=== PATIENT | female | born 1960 | race Caucasian/White ===

== ENCOUNTER 2017-03-31 20:22 | Emergency (ER) | payer OTHER ==
[2017-03-31 20:33] VITALS: BP 177/81
[2017-03-31] MEDS ORDERED: Ondansetron 4 MG/2 ML SDV IVPUSH ONE (20:42)
[2017-03-31] MEDS ORDERED: Sodium Chloride 0.9% 10 ML Syringe FLUSH PRN (20:42)
[2017-03-31] MEDS ORDERED: HYDROmorphone 1 MG/ML Syringe IVPUSH ONE (20:44)
[2017-03-31] MEDS ORDERED: Ketorolac 30 MG/ML SDV IVPUSH ONE (20:44)
[2017-03-31] MEDS ORDERED: Sodium Chloride 0.9% 1,000 ML IV SCH (20:45)
--- NOTE | 2017-03-31 20:49 | EDM.PDOC ---
ED HPI GENERAL MEDICAL PROBLEM - General Chief Complaint: Back Pain or Injury Stated Complaint: LEFT FLANK PAIN Time Seen by Provider: 03/31/17 20:31 Source of Information: Reports: Patient History Limitations: Reports: No Limitations - History of Present Illness INITIAL COMMENTS - FREE TEXT/NARRATIVE: The patient presents with left flank and left lower back pain. This started yesterday and the pain comes and goes. She has a history of kidney stones. She has some nausea but no vomiting. She has no fever, chills, cough, chest pain or shortness of breath. She has no dysuria or hematuria that she noticed. She feels she is urinating less. Onset: Sudden Duration: Day(s): (Yesterday) Location: Reports: Back (Left flank and lower back) Quality: Reports: Sharp Severity: Severe Improves with: Reports: None Worsens with: Reports: None Associated Symptoms: Reports: Nausea/Vomiting. Denies: Chest Pain, Cough, Fever /Chills, Headaches, Shortness of Breath Left Lower Back Pain Score (Numeric/FACES): 7 - Related Data Allergies Allergy/AdvReac Type Severity Reaction Status Date / Time No Known Allergies Allergy Verified 03/14/16 19:54 Home Meds: Home Meds Losartan [Cozaar] 25 mg PO DAILY 02/21/14 [History] Nortriptyline 25 mg PO BEDTIME 02/21/14 [History] Omeprazole [Prilosec] 20 mg PO DAILY 02/21/14 [History] Losartan [Cozaar] 50 mg PO DAILY #30 tablet 03/14/16 [Rx] Meclizine [Antivert] 12.5 mg PO Q6H PRN #20 tablet 03/14/16 [Rx] Metoprolol Tartrate 50 mg PO BID 03/14/16 [History] Multivitamin [Multi-Vitamin Daily] 1 each PO DAILY 03/14/16 [History] Triamcinolone Acetonide [Nasacort] 10.8 ml NS DAILY 03/14/16 [History] Past Medical History HEENT History: Reports: Cataract Cardiovascular History: Reports: High Cholesterol, Hypertension Gastrointestinal History: Reports: None Genitourinary History: Reports: Renal Calculus 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: Musculoskeletal History: Reports: Other (See Below) Other Musculoskeletal History: Shermans disease Neurological History: Reports: Migraines Psychiatric History: Reports: Anxiety Endocrine/Metabolic History: Reports: Other (See Below) Other Endocrine/Metabolic History: Borderline diabetic Hematologic History: Reports: Anemia - Past Surgical History HEENT Surgical History: Reports: Eye Surgery GI Surgical History: Reports: Cholecystectomy Female Surgical History: Reports: Section, Hysterectomy Social & Family History - Family History Family Medical History: Noncontributory - Tobacco Use Smoking Status *Q: Never Smoker Second Hand Smoke Exposure: No - Caffeine Use Caffeine Use: Reports: Soda - Recreational Drug Use Recreational Drug Use: No ED ROS GENERAL - Review of Systems Review Of Systems: See Below Constitutional: Reports: No Symptoms HEENT: Reports: No Symptoms Respiratory: Reports: No Symptoms Cardiovascular: Reports: No Symptoms Endocrine: Reports: No Symptoms GI/Abdominal: Reports: No Symptoms : Reports: Flank Pain (Left) Musculoskeletal: Reports: Back Pain (Left flank and left low back) Skin: Reports: No Symptoms ED EXAM,LOWER BACK PAIN/INJURY - Physical Exam Exam: See Below Exam Limited By: No Limitations General Appearance: Alert, No Apparent Distress Ears: Normal External Exam Nose: Normal Inspection Head: Atraumatic, Normocephalic Neck: Normal Inspection Respiratory/Chest: No Respiratory Distress, Lungs Clear, Normal Breath Sounds Cardiovascular: Regular Rate, Rhythm, No Edema, No Murmur GI/Abdominal: Soft, Non-Tender, No Organomegaly, No Mass Back Exam: CVA Tenderness (L) Extremities: Normal Inspection Neurological: Alert, No Motor/Sensory Deficits, Oriented x 3 Course - Vital Signs Last Recorded V/S: Last Vital Signs Temp 98.7 F 03/31/17 20:29 Pulse 90 03/31/17 20:29 Resp 18 03/31/17 20:29 BP 177/81 H 03/31/17 20:29 Pulse Ox 98 03/31/17 20:29 - Orders/Labs/Meds Orders: Active Orders 24 hr Category Date Time Status Peripheral IV Care [RC] . DIRECTED Care 03/31/17 20:43 Active Abdomen Pelvis wo Cont [CT] Stat Exams 03/31/17 20:42 Taken Sodium Chloride 0.9% [Normal Saline] 1,000 ml Med 03/31/17 20:45 Active IV ASDIRECTED Sodium Chloride 0.9% [Saline Flush] Med 03/31/17 20:42 Active 10 ml FLUSH ASDIRECTED PRN ED Antiemetic Medication Reflex [OM.PC] Stat Oth 03/31/17 20:43 Ordered Peripheral IV Insertion Adult [OM.PC] Stat Oth 03/31/17 20:42 Ordered Medication Orders Sodium Chloride (Normal Saline) 1,000 mls @ 125 mls/hr IV ASDIRECTED JESUS Last Admin: 03/31/17 21:00 Dose: 125 mls/hr Sodium Chloride (Saline Flush) 10 ml FLUSH ASDIRECTED PRN PRN Reason: Keep Vein Open Last Admin: 03/31/17 21:03 Dose: 10 ml Labs: Laboratory Tests 03/31/17 03/31/17 03/31/17 Range/Units 20:25 21:00 21:00 WBC 8.34 (3.98-10.04) K/mm3 RBC 3.92 L (3.98-5.22) M/mm3 Hgb 12.1 (11.2-15.7) gm/L Hct 37.6 (34.1-44.9) % MCV 95.9 H (79.4-94.8) fl MCH 30.9 (25.6-32.2) pg MCHC 32.2 (32.2-35.5) g/dl RDW Std Deviation 46.3 (36.4-46.3) fL Plt Count 325 (182-369) K/mm3 MPV 10.1 (9.4-12.3) fl Neut % (Auto) 66.6 (34.0-71.1) % Lymph % (Auto) 21.9 (19.3-51.7) % [place] % (Auto) 7.2 (4.7-12.5) % Eos % (Auto) 3.7 (0.7-5.8) Baso % (Auto) 0.4 (0.1-1.2) % Neut # (Auto) 5.55 (1.56-6.13) K/mm3 Lymph # (Auto) 1.83 (1.18-3.74) K/mm3 [place] # (Auto) 0.60 H (0.24-0.36) K/mm3 Eos # (Auto) 0.31 (0.04-0.36) K/mm3 Baso # (Auto) 0.03 (0.01-0.08) K/mm3 Sodium 142 (136-145) mEq/L Potassium 3.8 (3.5-5.1) mEq/L Chloride 103 (98-107) mEq/L Carbon Dioxide 27 (21-32) mEq/L Anion Gap 15.8 H (5-15) BUN 13 (7-18) mg/dL Creatinine 1.0 (0.55-1.02) mg/dL Est Cr Clr Drug Dosing 57.87 mL/min Estimated GFR (MDRD) 58 (>60) mL/min BUN/Creatinine Ratio 13.0 L (14-18) Glucose 167 H (74-106) mg/dL Calcium 9.0 (8.5-10.1) mg/dL Total Bilirubin 0.4 (0.2-1.0) mg/dL AST 18 (15-37) U/L ALT 39 (14-59) U/L Alkaline Phosphatase 109 (46-116) U/L Total Protein 7.9 (6.4-8.2) g/dl Albumin 4.0 (3.4-5.0) g/dl Globulin 3.9 gm/dL Albumin/Globulin Ratio 1.0 (1-2) Lipase 96 (73-393) U/L Urine Color Light yellow (Yellow) Urine Appearance Clear (Clear) Urine pH 6.0 (5.0-8.0) Ur Specific [place] 1.010 (1.005-1.030) Urine Protein Negative (Negative) Urine Glucose (UA) Negative (Negative) Urine Ketones Negative (Negative) Urine Occult Blood 2+ H (Negative) Urine Nitrite Negative (Negative) Urine Bilirubin Negative (Negative) Urine Urobilinogen 0.2 (0.2-1.0) Ur Leukocyte Esterase Negative (Negative) Urine RBC 5-10 H (0-5) /hpf Urine WBC Not seen (0-5) /hpf Ur Epithelial Cells 0-5 (0-5) /hpf Urine Bacteria Rare (FEW) /hpf Urine Mucus Not seen (FEW) /hpf Meds: Medications Generic Name Dose Route Start Last Admin Trade Name Freq PRN Reason Stop Dose Admin Sodium Chloride 1,000 mls @ 125 mls/hr 03/31/17 20:45 03/31/17 21:00 Normal Saline IV 125 mls/hr ASDIRECTED JESUS Administration Sodium Chloride 10 ml 03/31/17 20:42 03/31/17 21:03 Saline Flush FLUSH 10 ml ASDIRECTED PRN Administration Keep Vein Open Discontinued Medications Generic Name Dose Route Start Last Admin Trade Name [place]mond PRN Reason Stop Dose Admin Hydromorphone HCl 1 mg 03/31/17 20:44 03/31/17 21:03 Dilaudid IVPUSH 03/31/17 20:45 1 mg ONETIME ONE Administration Ketorolac Tromethamine 30 mg 03/31/17 20:44 03/31/17 21:02 Toradol IVPUSH 03/31/17 20:45 30 mg ONETIME ONE Administration Ondansetron HCl 4 mg 03/31/17 20:42 03/31/17 21:01 Zofran IVPUSH 03/31/17 20:43 4 mg ONETIME ONE Administration - Re-Assessments/Exams Free Text/Narrative Re-Assessment/Exam: 03/31/17 20:52 I ordered an IV NS 125mL/hr, zofran 4mg IV, toradol 30mg IV and dilaudid 1mg IV. I will get labs, UA and a CT of her abdomen and pelvis. 03/31/17 22:27 Her CBC was negative. Her CMP was negative. Her lipase was negative. Her UA shows some blood. Her CT shows a 5mm stone in the proximal left ureter which results in mild left-sided hydronephrosis. She feels better but the pain is not gone. I will give her another dose of dilaudid and discharge her home with some Departure - Departure Time of Disposition: 10:35 Disposition: Home, Self-Care 01 Condition: Good Clinical Impression: Kidney stone, Ureteral colic, Ureteral calculus, left - Discharge Information Referrals: Eugene Baum MD [Primary Care Provider] - Florentino France MD [Physician] - 1 Week Forms: ED Department Discharge Additional Instructions: Drink plenty of water. Take the flomax daily. Take the percocet 1 to 2 pills every 6 hours as needed for pain. Follow up with Dr France. Please return if you are worse. - My Orders Last 24 Hours: My Active Orders 03/31/17 20:42 Abdomen Pelvis wo Cont [CT] Stat Sodium Chloride 0.9% [Saline Flush] 10 ml FLUSH ASDIRECTED PRN Peripheral IV Insertion Adult [OM.PC] Stat 03/31/17 20:43 Peripheral IV Care [RC] . DIRECTED ED Antiemetic Medication Reflex [OM.PC] Stat 03/31/17 20:45 Sodium Chloride 0.9% [Normal Saline] 1,000 ml IV ASDIRECTED - Assessment/Plan Last 24 Hours: My Active Orders 03/31/17 20:42 Abdomen Pelvis wo Cont [CT] Stat Sodium Chloride 0.9% [Saline Flush] 10 ml FLUSH ASDIRECTED PRN Peripheral IV Insertion Adult [OM.PC] Stat 03/31/17 20:43 Peripheral IV Care [RC] . DIRECTED ED Antiemetic Medication Reflex [OM.PC] Stat 03/31/17 20:45 Sodium Chloride 0.9% [Normal Saline] 1,000 ml IV ASDIRECTED
[2017-03-31] MEDS ORDERED: HYDROmorphone 0.5 MG/0.5 ML Syringe IVPUSH ONE (22:27)
[2017-03-31] MEDS ORDERED: Tamsulosin 0.4 MG Cap.ER PO ONE (22:30)
--- NOTE | 2017-04-01 07:40 | CT ---
CT abdomen and pelvis Technique: Multiple axial sections were obtained from above the dome of the diaphragm inferiorly through the pubic symphysis. Intravenous and oral contrast not utilized. Study has been performed as a ureteral stone protocol. Comparison: Previous CT abdomen and pelvis exam of 04/10/12. Findings: Multiple small nonobstructing calculi are noted within both kidneys. Left collecting system is mildly prominent. Proximal left ureter is mildly prominent. These findings are caused by proximal left ureteral stone measuring approximately 6.0 mm in size. No other abnormal calcifications are seen along the course of the ureters. Visualized lung bases show nothing acute. Liver shows no focal abnormality. Spleen appears normal in size. Adrenal glands show no nodule. Surgical clips are seen from prior cholecystectomy. Pancreas is within normal limits. Aorta shows diffuse atherosclerotic change which continues into the iliac vessels. Haziness is noted within the mesenteric fat which is is felt to be incidental. Appendix is seen which appears normal. No pelvic mass or adenopathy is seen. No free fluid is identified. Bone window settings were reviewed which show scattered degenerative change most prominent within the lower thoracic spine. Impression: 1. Multiple small nonobstructing renal calculi. Most of these are seen on prior study. 2. Obstructing proximal left ureteral stone measuring about 6.0 mm. 3. Other incidental findings as noted above. Diagnostic code #3 Agree with preliminary report issued by [facility] ([facility] preliminary report dictated on 03/31/17, 10:37 PM Central Time)
== END 2017-03-31 22:55 | disposition home or self-care (01) ==
LOC: JD.ED 20:22
DX: N13.2 Hydronephrosis with renal and ureteral calculous obstruction (principal); E78.00 Pure hypercholesterolemia, unspecified; I10 Essential (primary) hypertension; F41.9 Anxiety disorder, unspecified; Z90.710 Acquired absence of both cervix and uterus; Z79.899 Other long term (current) drug therapy; Z87.442 Personal history of urinary calculi; Z90.49 Acquired absence of other specified parts of digestive tract
CPT/HCPCS: 36415; 74176; 80053; 81001; 83690; 85025; 96361; 96374; 96375; 96376; 99284; A9270; J1170; J1885; J2405; J7040; J7050

== ENCOUNTER 2017-04-03 10:01 | Emergency (ER) | payer OTHER ==
[2017-04-03] MEDS ORDERED: Ondansetron 4 MG/2 ML SDV IVPUSH ONE (10:24)
[2017-04-03] MEDS ORDERED: Sodium Chloride 0.9% 10 ML Syringe FLUSH PRN (10:24)
[2017-04-03] MEDS ORDERED: HYDROmorphone 1 MG/ML Syringe IVPUSH ONE (10:25)
[2017-04-03] MEDS ORDERED: Ketorolac 30 MG/ML SDV IVPUSH ONE (10:25)
[2017-04-03] MEDS ORDERED: Sodium Chloride 0.9% 1,000 ML IV SCH (10:30)
--- NOTE | 2017-04-03 10:31 | EDM.PDOC ---
ED HPI GENERAL MEDICAL PROBLEM - General Chief Complaint: Flank Pain Stated Complaint: LEFT FLANK PAIN Time Seen by Provider: 04/03/17 10:12 Source of Information: Reports: Patient History Limitations: Reports: No Limitations - History of Present Illness INITIAL COMMENTS - FREE TEXT/NARRATIVE: The patient presents with left flank pain. She was seen here Friday night and she had a 5mm left ureteral stone that was mid ureter. She was given flomax and percocet. She has had some pain on and off since then. This morning the pain got very bad. She had some nausea with it. She denies fever, chills, cough, chest pain, or shortness of breath. She did not get a change to follow up with Dr France. Onset: Gradual Duration: Day(s): (Since Friday) Location: Reports: Back (left flank to the left abdomen) Quality: Reports: Sharp Severity: Severe Improves with: Reports: None Worsens with: Reports: None Associated Symptoms: Reports: Nausea/Vomiting. 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) Other Treatments BREAKER MACHINE OPERATOR: Percocet 1 tab @ 0900 Left Flank Pain Score (Numeric/FACES): 8 - Related Data Allergies Allergy/AdvReac Type Severity Reaction Status Date / Time No Known Allergies Allergy Verified 04/03/17 10:11 Home Meds: Home Meds Losartan [Cozaar] 25 mg PO DAILY 02/21/14 [History] Nortriptyline 25 mg PO BEDTIME 02/21/14 [History] Omeprazole [Prilosec] 20 mg PO DAILY 02/21/14 [History] Losartan [Cozaar] 50 mg PO DAILY #30 tablet 03/14/16 [Rx] Meclizine [Antivert] 12.5 mg PO Q6H PRN #20 tablet 03/14/16 [Rx] Metoprolol Tartrate 50 mg PO BID 03/14/16 [History] Multivitamin [Multi-Vitamin Daily] 1 each PO DAILY 03/14/16 [History] Triamcinolone Acetonide [Nasacort] 10.8 ml NS DAILY 03/14/16 [History] oxyCODONE HCl/Acetaminophen [Percocet 5-325 mg Tablet] 1 - 2 each PO Q6HR PRN # 20 tablet 04/03/17 [Rx] Past Medical History HEENT History: Reports: Cataract Cardiovascular History: Reports: High Cholesterol, Hypertension Gastrointestinal History: Reports: None Genitourinary History: Reports: Renal Calculus 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: Musculoskeletal History: Reports: Other (See Below) Other Musculoskeletal History: Shermans disease Neurological History: Reports: Migraines Psychiatric History: Reports: Anxiety Endocrine/Metabolic History: Reports: Other (See Below) Other Endocrine/Metabolic History: Borderline diabetic Hematologic History: Reports: Anemia - Past Surgical History HEENT Surgical History: Reports: Eye Surgery GI Surgical History: Reports: Cholecystectomy Female Surgical History: Reports: Section, Hysterectomy Social & Family History - Family History Family Medical History: Noncontributory - Tobacco Use Smoking Status *Q: Never Smoker Second Hand Smoke Exposure: No - Caffeine Use Caffeine Use: Reports: Soda - Recreational Drug Use Recreational Drug Use: No ED ROS GENERAL - Review of Systems Review Of Systems: See Below Constitutional: Reports: No Symptoms HEENT: Reports: No Symptoms Respiratory: Reports: No Symptoms Cardiovascular: Reports: No Symptoms Endocrine: Reports: No Symptoms GI/Abdominal: Reports: Abdominal Pain, Nausea. Denies: Vomiting : Reports: Flank Pain (Left) Musculoskeletal: Reports: Back Pain (Left) ED EXAM, RENAL/ - Physical Exam Exam: See Below Exam Limited By: No Limitations General Appearance: Alert, Mild Distress Ears: Normal External Exam Nose: Normal Inspection Head: Atraumatic, Normocephalic Neck: Normal Inspection Respiratory/Chest: No Respiratory Distress, Lungs Clear, Normal Breath Sounds Cardiovascular: Regular Rate, Rhythm, No Edema, No Murmur GI/Abdominal: Soft, No Organomegaly, No Mass, Tender (Mild to the left abdomen) Back Exam: CVA Tenderness (L) (Mild) Course - Vital Signs Last Recorded V/S: Last Vital Signs Temp 99.0 F 04/03/17 10:08 Pulse 86 04/03/17 10:08 Resp 18 04/03/17 10:08 BP 143/88 H 04/03/17 10:08 Pulse Ox 97 04/03/17 10:08 - Orders/Labs/Meds Orders: Active Orders 24 hr Category Date Time Status Peripheral IV Care [RC] . DIRECTED Care 04/03/17 10:24 Active Sodium Chloride 0.9% [Normal Saline] 1,000 ml Med 04/03/17 10:30 Active IV ASDIRECTED Sodium Chloride 0.9% [Saline Flush] Med 04/03/17 10:24 Active 10 ml FLUSH ASDIRECTED PRN ED Antiemetic Medication Reflex [OM.PC] Stat Ot 04/03/17 10:24 Ordered Peripheral IV Insertion Adult [OM.PC] Stat Ot 04/03/17 10:24 Ordered Medication Orders Sodium Chloride (Normal Saline) 1,000 mls @ 125 mls/hr IV ASDIRECTED JESUS Last Admin: 04/03/17 10:54 Dose: 125 mls/hr Sodium Chloride (Saline Flush) 10 ml FLUSH ASDIRECTED PRN PRN Reason: Keep Vein Open Last Admin: 04/03/17 10:58 Dose: 10 ml Labs: Laboratory Tests 04/03/17 04/03/17 04/03/17 Range/Units 10:45 10:45 10:45 WBC 12.58 H (3.98-10.04) K/mm3 RBC 3.59 L (3.98-5.22) M/mm3 Hgb 11.1 L (11.2-15.7) gm/L Hct 34.8 (34.1-44.9) % MCV 96.9 H (79.4-94.8) fl MCH 30.9 (25.6-32.2) pg MCHC 31.9 L (32.2-35.5) g/dl RDW Std Deviation 46.8 H (36.4-46.3) fL Plt Count 292 (182-369) K/mm3 MPV 10.5 (9.4-12.3) fl Neut % (Auto) 79.2 H (34.0-71.1) % Lymph % (Auto) 8.8 L (19.3-51.7) % [place] % (Auto) 8.2 (4.7-12.5) % Eos % (Auto) 3.3 (0.7-5.8) Baso % (Auto) 0.3 (0.1-1.2) % Neut # (Auto) 9.95 H (1.56-6.13) K/mm3 Lymph # (Auto) 1.11 L (1.18-3.74) K/mm3 [place] # (Auto) 1.03 H (0.24-0.36) K/mm3 Eos # (Auto) 0.42 H (0.04-0.36) K/mm3 Baso # (Auto) 0.04 (0.01-0.08) K/mm3 Manual Slide Review Abnormal smear Sodium 137 (136-145) mEq/L Potassium 4.3 (3.5-5.1) mEq/L Chloride 100 (98-107) mEq/L Carbon Dioxide 30 (21-32) mEq/L Anion Gap 11.3 (5-15) BUN 12 (7-18) mg/dL Creatinine 1.2 H (0.55-1.02) mg/dL Est Cr Clr Drug Dosing TNP Estimated GFR (MDRD) 47 (>60) mL/min BUN/Creatinine Ratio 10.0 L (14-18) Glucose 132 H (74-106) mg/dL Calcium 9.7 (8.5-10.1) mg/dL Total Bilirubin 0.4 (0.2-1.0) mg/dL AST 28 (15-37) U/L ALT 57 (14-59) U/L Alkaline Phosphatase 109 (46-116) U/L Total Protein 8.2 (6.4-8.2) g/dl Albumin 3.7 (3.4-5.0) g/dl Globulin 4.5 gm/dL Albumin/Globulin Ratio 0.8 L (1-2) Lipase 76 (73-393) U/L Urine Color Light yellow (Yellow) Urine Appearance Clear (Clear) Urine pH 6.5 (5.0-8.0) Ur Specific [place] 1.010 (1.005-1.030) Urine Protein Negative (Negative) Urine Glucose (UA) Negative (Negative) Urine Ketones Negative (Negative) Urine Occult Blood 1+ H (Negative) Urine Nitrite Negative (Negative) Urine Bilirubin Negative (Negative) Urine Urobilinogen 0.2 (0.2-1.0) Ur Leukocyte Esterase Trace H (Negative) Urine RBC 0-5 (0-5) /hpf Urine WBC 0-5 (0-5) /hpf Ur Epithelial Cells 0-5 (0-5) /hpf Urine Bacteria Not seen (FEW) /hpf Urine Mucus Not seen (FEW) /hpf Meds: Medications Generic Name Dose Route Start Last Admin Trade Name Freq PRN Reason Stop Dose Admin Sodium Chloride 1,000 mls @ 125 mls/hr 04/03/17 10:30 04/03/17 10:54 Normal Saline IV 125 mls/hr ASDIRECTED JESUS Administration Sodium Chloride 10 ml 04/03/17 10:24 04/03/17 10:58 Saline Flush FLUSH 10 ml ASDIRECTED PRN Administration Keep Vein Open Discontinued Medications Generic Name Dose Route Start Last Admin Trade Name Vaughnq PRN Reason Stop Dose Admin Hydromorphone HCl 1 mg 04/03/17 10:25 04/03/17 10:55 Dilaudid IVPUSH 04/03/17 10:26 1 mg ONETIME ONE Administration Hydromorphone HCl 0.5 mg 04/03/17 12:41 Dilaudid IVPUSH 04/03/17 12:42 ONETIME ONE Ketorolac Tromethamine 30 mg 04/03/17 10:25 04/03/17 11:00 Toradol IVPUSH 04/03/17 10:26 30 mg ONETIME ONE Administration Ondansetron HCl 4 mg 04/03/17 10:24 04/03/17 10:59 Zofran IVPUSH 04/03/17 10:25 4 mg ONETIME ONE Administration - Re-Assessments/Exams Free Text/Narrative Re-Assessment/Exam: 04/03/17 10:31 I ordered an IV NS at 125mL/hr, zofran 4mg IV, dilaudid 1mg IV, toradol 30mg IV , labs and UA. 04/03/17 12:47 Her WBC was elevated at 12.58. Her Hgb was a little low at 11.1. Her creatinine was slightly elevated at 1.2. Her glucose was elevated at 132. Her lipase was negative. Her UA had blood. Her x-ray shows calcification within the pelvis most likely representing previous obstructing stone within the left ureter having moved distally and now lies at the UVJ. Nonobstructing calculi are seen within both kidneys. She still has some pain so I ordered more dilaudid 0.5mg IV. She has an appointment with Dr Liang on Friday. It appears the stone has moved. I will keep her on the meds and have her take some ibuprofen also. Departure - Departure Time of Disposition: 12:50 Disposition: Home, Self-Care 01 Condition: Good Clinical Impression: Kidney stone, Ureteral colic, Ureteral calculus, left - Discharge Information Prescriptions: oxyCODONE HCl/Acetaminophen [Percocet 5-325 mg Tablet] 1 - 2 each PO Q6HR PRN # 20 tablet PRN Reason: Pain Referrals: Eugene Baum MD [Primary Care Provider] - Forms: ED Department Discharge Additional Instructions: Drink plenty of fluids. Take the flomax daily. Take the percocet 1 to 2 pills every 6 hours as needed for pain. Take motrin or aleve as needed for pain. Follow up with the urologist as scheduled. Please return if you are worse. - My Orders Last 24 Hours: My Active Orders 04/03/17 10:24 Peripheral IV Care [RC] . DIRECTED Sodium Chloride 0.9% [Saline Flush] 10 ml FLUSH ASDIRECTED PRN ED Antiemetic Medication Reflex [OM.PC] Stat Peripheral IV Insertion Adult [OM.PC] Stat 04/03/17 10:30 Sodium Chloride 0.9% [Normal Saline] 1,000 ml IV ASDIRECTED - Assessment/Plan Last 24 Hours: My Active Orders 04/03/17 10:24 Peripheral IV Care [RC] . DIRECTED Sodium Chloride 0.9% [Saline Flush] 10 ml FLUSH ASDIRECTED PRN ED Antiemetic Medication Reflex [OM.PC] Stat Peripheral IV Insertion Adult [OM.PC] Stat 04/03/17 10:30 Sodium Chloride 0.9% [Normal Saline] 1,000 ml IV ASDIRECTED
--- NOTE | 2017-04-03 11:31 | CR ---
Abdomen: Supine view of the abdomen was obtained. Comparison: No prior abdominal x-ray. Previous CT abdomen and pelvis study performed as a stone protocol dated 03/31/17. Atelectasis is seen within the left lung base. Surgical clips are seen within the upper right abdomen. Calcifications noted overlying both kidneys which are compatible with nonobstructing calculi. Calcification is seen within the left pelvis most likely representing previous obstructing stone seen on CT exam which has moved distally to the UVJ. Bowel gas pattern is normal. Bony structures are within normal limits for the patient's age. Impression: 1. Calcification within the pelvis most likely representing previous obstructing stone within the left ureter having moved distally and now lies at the UVJ. 2. Nonobstructing calculi are seen within both kidneys. 3. Other incidental findings. Diagnostic code #3
[2017-04-03] MEDS ORDERED: HYDROmorphone 0.5 MG/0.5 ML Syringe IVPUSH ONE (12:41)
[2017-04-03 13:11] VITALS: BP 117/74
== END 2017-04-03 13:10 | disposition home or self-care (01) ==
LOC: JD.ED 10:01
DX: N20.2 Calculus of kidney with calculus of ureter (principal); E78.00 Pure hypercholesterolemia, unspecified; I10 Essential (primary) hypertension; F41.9 Anxiety disorder, unspecified; Z86.2 Personal history of diseases of the blood and blood-forming organs and certain disorders involving the immune mechanism; Z87.442 Personal history of urinary calculi; Z90.49 Acquired absence of other specified parts of digestive tract; Z79.899 Other long term (current) drug therapy; Z90.710 Acquired absence of both cervix and uterus
CPT/HCPCS: 36415; 74000; 80053; 81001; 83690; 85025; 96361; 96374; 96375; 96376; 99284; J1170; J1885; J2405; J7040; J7050

== ENCOUNTER 2023-08-22 17:22 | Emergency (ER) | payer OTHER ==
[2023-08-22] MEDS ORDERED: Metoprolol Tartrate 25 MG Tab PO ONE (17:54)
[2023-08-22] MEDS ORDERED: Losartan 100 MG Tab PO ONE (18:05)
[2023-08-22] MEDS ORDERED: Labetalol 100 MG/20 ML MDV IVPUSH ONE ×4 (18:33→20:30)
[2023-08-22] MEDS ORDERED: Sodium Chloride 0.9% 10 ML Syringe FLUSH PRN (18:33)
[2023-08-22] MEDS ORDERED: NIFEdipine 10 MG Cap PO ONE (20:56)
[2023-08-22] MEDS ORDERED: Ketorolac 30 MG/ML SDV IVPUSH ONE (21:00)
[2023-08-22] MEDS ORDERED: Metoclopramide 10 MG/2 ML SDV IVPUSH ONE (21:01)
[2023-08-22 21:31] LABS: APPEARANCE,URINE CLEAR (Clear); BILIRUBIN,URINE NEGATIVE (Negative); COLOR,URINE LIGHT YELLOW (Yellow); GLUCOSE,URINE NEGATIVE (Negative); KETONES,URINE NEGATIVE (Negative); LEUKOCYTE ESTERASE,URINE NEGATIVE (Negative); NITRITE,URINE NEGATIVE (Negative); OCCULT BLOOD,URINE TRACE-INTACT (Negative); PROTEIN,URINE NEGATIVE (Negative); UROBILINOGEN,URINE 0.2 (0.2-1.0)
[2023-08-22 22:01] LABS: BACTERIA,URINE FEW /hpf (FEW); MUCUS,URINE FEW /hpf (FEW); SQUAMOUS EPITHELIAL CELLS,UR 0-5 /hpf (0-5); WBC,URINE 0-5 /hpf (0-5)
[2023-08-22 22:41] VITALS: BP 168/69; PULSE 88
[2023-08-23] MEDS ORDERED: Losartan 100 MG Tab PO ONE (17:54)
== END 2023-08-22 21:45 | disposition home or self-care (01) ==
LOC: JD.ED 17:22
DX: I10 Essential (primary) hypertension (principal); R51.9 Headache, unspecified; Z79.899 Other long term (current) drug therapy; Z90.49 Acquired absence of other specified parts of digestive tract; Z90.710 Acquired absence of both cervix and uterus
CPT/HCPCS: 70450; 70450-26; 81001; 93005; 93010; 96374; 96375; 96376; 99284; 99284-25; A9270-GY; J1885; J1921; J2765; J3490